=== PATIENT | female | born 1960 | race Caucasian/White ===

== ENCOUNTER → 2024-03-10 12:50 | Outpatient (REF) | payer OTHER, SELFPAY | LOC: HWRAD 12:50 | PROVIDERS: ATTENDING PHYSICIAN Nurse Practitioner Family | DX: Z13.820 Encounter for screening for osteoporosis (principal); Z12.31 Encounter for screening mammogram for malignant neoplasm of breast | CPT/HCPCS: 77063; 77067; 77080 ==